=== PATIENT | female | born 1980 | race Caucasian/White ===

== ENCOUNTER 2016-10-27 22:11 | Inpatient (IN) | payer OTHER ==
[~2016-10-27] VITALS: Ht 165.1 cm; Wt 77.6 kg
[2016-10-27] MEDS ORDERED: LR 500 ML IV ONE (23:22)
[2016-10-27] MEDS ORDERED: LR 1,000 ML IV ONE (23:22)
[2016-10-27] MEDS ORDERED: LR 1,000 ML IV SCH (23:22)
[2016-10-27] MEDS ORDERED: NALBUPHINE HCL 10 MG/ML AMP IVP PRN (23:30)
[2016-10-27] MEDS ORDERED: TERBUTALINE SULFATE 1 MG/ML VIAL SUBCUT ONE (23:30)
[2016-10-27 23:36] LABS: BASOPHILS % (AUTO) 0.3 % (0.0-2.0); EOSINOPHILS # (AUTO) 0.3 K/uL (0.0-0.4); EOSINOPHILS % (AUTO) 1.9 % (0.0-4.0); HEMATOCRIT 35.7 % (36-48); HEMOGLOBIN 12.2 g/dL (12.0-16.0); LYMPHOCYTES # (AUTO) 1.6 K/uL (1.0-5.5); LYMPHOCYTES % (AUTO) 11.7 % (20.5-51.5); MEAN CORPUSCULAR HEMOGLOBIN 31 pg (27-31); MEAN CORPUSCULAR HGB CONC 34 % (32-36); MEAN CORPUSCULAR VOLUME 91 fL (79.0-98.0); MONOCYTES # (AUTO) 1.2 K/uL (0.0-1.0); MONOCYTES % (AUTO) 8.8 % (1.7-9.3); NEUTROPHILS # (AUTO) 10.7 K/uL (1.8-7.7); NEUTROPHILS % (AUTO) 77.3 % (40.0-70.0); PLATELET COUNT (AUTO) 264 K/uL (130-430); RED BLOOD CELL COUNT(AUTO) 3.93 MIL/uL (4.2-6.2); RED CELL DISTRIBUTION WIDTH 12.5 % (9.0-15.0); WHITE BLOOD COUNT (AUTO) 13.8 K/uL (4.8-10.8)
[2016-10-27] MEDS ORDERED: OXYTOCIN/NORMAL SALINE 1,000 ML IV ONE (23:38)
[2016-10-28] MEDS ORDERED: CITRIC ACID/SODIUM CITRATE 30 ML UDC ONE (10:48)
[2016-10-28] MEDS ORDERED: ePHEDrine sulfate 50 MG/ML VIAL IV ONE (10:50)
[2016-10-28] MEDS ORDERED: MORPHINE SULFATE 10MG/10ML PF AMP EP ONE (10:50)
[2016-10-28] MEDS ORDERED: NS 100 ML BAG IV ONE (10:50)
[2016-10-28] MEDS ORDERED: ONDANSETRON HCL 4 MG/2 ML VIAL IVP ONE (10:50)
[2016-10-28] MEDS ORDERED: NS IRRIG SOLN 1000 ML IR ONE (10:50)
[2016-10-28] MEDS ORDERED: LR 1,000 ML IV.SOLN IV ONE (10:50)
[2016-10-28] MEDS ORDERED: OXYTOCIN 10 UNIT/ML VIAL IV ONE (10:50)
[2016-10-28] MEDS ORDERED: CEFAZOLIN 2 GM IVPB PREMIX 50 ML IV ONE ×2 (11:00→11:07)
[2016-10-28] MEDS ORDERED: NALOXONE HCL 1 MG in NACL 0.9% 1,000 ML IV PRN ×4 (11:48)
[2016-10-28] MEDS ORDERED: LR 1,000 ML IV SCH ×2 (11:48→12:16)
[2016-10-28] MEDS ORDERED: HYDROmorphone 1 MG INJ. 1 MG/ML AMPUL IVP PRN (12:00)
[2016-10-28] MEDS ORDERED: DIPHENHYDRAMINE INJ 50 MG/ML VIAL IVP PRN (12:00)
[2016-10-28] MEDS ORDERED: HYDROmorphone 2 MG/ML VIAL IVP PRN ×2 (12:00)
[2016-10-28] MEDS ORDERED: DIPHENHYDRAMINE HCL 50 MG CAPSULE PO PRN (12:00)
[2016-10-28] MEDS ORDERED: NALOXONE HCL 0.4 MG/ML AMP (NARCAN) IVP PRN ×3 (12:00)
[2016-10-28] MEDS ORDERED: ONDANSETRON HCL 4 MG/2 ML VIAL IVP PRN (12:00)
[2016-10-28] MEDS ORDERED: KETOROLAC TROMETHAMINE 60 MG/2 ML VIAL IM PRN (12:00)
[2016-10-28] MEDS ORDERED: MEPERIDINE HCL/PF 25 MG/ML DISP.SYRIN IVP PRN ×2 (12:00)
[2016-10-28] MEDS ORDERED: OXYTOCIN/NORMAL SALINE 1,000 ML IV ONE ×2 (12:16→12:36)
[2016-10-28] MEDS ORDERED: OXYCODONE/ACETAMINOPHEN 5-325 TABLET PO PRN ×2 (12:30)
[2016-10-28] MEDS ORDERED: MORPHINE SULFATE 10 MG/ML VIAL IVP PRN (12:30)
[2016-10-28] MEDS ORDERED: LANOLIN 7 GM OINT. TP PRN (12:30)
[2016-10-28] MEDS ORDERED: MEASLES,MUMPS&RUBELLA VACC/PF 12500 UNIT/0.5 ML VIAL SUBQ PRN (12:30)
[2016-10-28] MEDS ORDERED: SIMETHICONE 80 MG TAB.CHEW PO PRN (12:30)
[2016-10-28] MEDS ORDERED: ANUSOL 1 EA SUPP.RECT (PREPARATION H) RC PRN (12:30)
[2016-10-28] MEDS ORDERED: RHO(D) IMMUNE GLOBULIN/MALTOSE 1500 UNITS/1.3 ML (WINHRO) IM PRN (12:30)
[2016-10-28] MEDS ORDERED: SENNOSIDES/DOCUSATE SODIUM 1 TAB TABLET(SENOKOT-S) PO PRN (12:30)
[2016-10-28] MEDS ORDERED: BISACODYL 10 MG/SUPPOSITORY RC PRN (12:30)
[2016-10-28] MEDS ORDERED: DOCUSATE SODIUM 100 MG CAPSULE PO PRN (12:30)
[2016-10-28] MEDS: OXYTOCIN/NORMAL SALINE 1,000 ML IV SCH (12:35)
[2016-10-28] MEDS ORDERED: TEMAZEPAM 15 MG CAPSULE PO PRN (21:00)
[2016-10-28 21:02] VITALS: BP_SYST 108
[2016-10-29] MEDS: IBUPROFEN 800 MG TABLET PO PRN ×2 (06:23→19:12)
[2016-10-29 07:01] LABS: HEMOGLOBIN 10.4 g/dL (12.0-16.0); MEAN CORPUSCULAR HEMOGLOBIN 31 pg (27-31); MEAN CORPUSCULAR HGB CONC 33 % (32-36); MEAN CORPUSCULAR VOLUME 91 fL (79.0-98.0); PLATELET COUNT (AUTO) 215 K/uL (130-430); RED BLOOD CELL COUNT(AUTO) 3.39 MIL/uL (4.2-6.2); RED CELL DISTRIBUTION WIDTH 12.4 % (9.0-15.0); WHITE BLOOD COUNT (AUTO) 16.8 K/uL (4.8-10.8)
[2016-10-29 11:20] LABS: BAND % (MANUAL) 21 % (0-6); LYMPHOCYTES % (MANUAL) 9 % (20-46)
[2016-10-29 11:21] LABS: ATYPICAL LYMPHOCYTES % 3 % (0-0); BASOPHILS % (MANUAL) 0 % (0-2); EOSINOPHILS % (MANUAL) 1 % (0-7); MONOCYTES % (MANUAL) 5 % (0-11)
[2016-10-30] MEDS: IBUPROFEN 800 MG TABLET PO PRN ×3 (01:47→11:43)
== END 2016-10-30 16:30 | disposition home or self-care (01) | DRG 540 ==
LOC: OBSVTOIN 22:11 → SPU 22:11
PROVIDERS: ADMIT Obstetrics & Gynecology; ATTEND Obstetrics & Gynecology
PROC: 10D00Z1 Extraction of Products of Conception, Low, Open Approach (ICD-10-PCS; principal; 2016-10-28 10:00)
DX: O62.2 Other uterine inertia (principal); O36.5930 Maternal care for other known or suspected poor fetal growth, third trimester, not applicable or unspecified; O41.03X0 Oligohydramnios, third trimester, not applicable or unspecified; O48.0 Post-term pregnancy; O69.81X0 Labor and delivery complicated by cord around neck, without compression, not applicable or unspecified; O76 Abnormality in fetal heart rate and rhythm complicating labor and delivery; Z3A.42 42 weeks gestation of pregnancy; Z83.3 Family history of diabetes mellitus; Z82.49 Family history of ischemic heart disease and other diseases of the circulatory system; Z80.6 Family history of leukemia; Z37.0 Single live birth
CPT/HCPCS: 36415; 85007; 85025; 85027; 86592; 86886; 86900; 86901; 88307; 94760; J0690; J2274; J2405; J2590; J7120